=== PATIENT | male | born 1960 | race Caucasian/White ===

== ENCOUNTER → 2019-10-19 | Outpatient (CLI) | payer BC, MEDICARE | END | disposition home or self-care (01) | LOC: LABWHC1 10:20 | PROVIDERS: ATTEND Surgery Plastic and Reconstructive Surgery | DX: Z11.59 Encounter for screening for other viral diseases (principal) ==

== ENCOUNTER 2019-10-21 08:35 | Day surgery (SDC) | payer BC, MEDICARE ==
[2019-10-16 12:14] VITALS: BMI 27.0
--- NOTE | 2019-10-21 08:12 | P.GSHP ---
History of Present Illness H&P Date: 10/21/19 CHIEF COMPLAINT: Colon screen HISTORY OF PRESENT ILLNESS: The patient is a 59-year-old male who presents for colon screen. Lower endoscopy was offered for further evaluation and management. PAST MEDICAL HISTORY: Please see list. PAST SURGICAL HISTORY: Please see list. MEDICATIONS: Please see list. ALLERGIES: Please see list. SOCIAL HISTORY: No illicit drug use FAMILY HISTORY: No reports of Crohn disease or ulcerative colitis. REVIEW OF ORGAN SYSTEMS: CONSTITUTIONAL: No reports of fevers or chills. PHYSICAL EXAM: VITAL SIGNS: Stable GENERAL: Well-developed pleasant in no acute distress. HEENT: No scleral icterus. Extraocular movements grossly intact. Moist buccal mucosa. NECK: Supple without lymphadenopathy. CHEST: Unlabored respirations. Equal bilateral excursions. CARDIOVASCULAR: Regular rate and rhythm. Distal 2+ pulses. ABDOMEN: Soft, nontender, nondistended. MUSCULOSKELETAL: No clubbing, cyanosis, or edema. ASSESSMENT: 1. Colon screen. PLAN: 1. Recommend proceeding with a lower endoscopy Past Medical History Past Medical History: Hypertension, Prostate Disorder Additional Past Medical History / Comment(s): hx. of intermittent blood in stool for a few weeks recently, now resolved, migraine headaches, enlarged prostate History of Any Multi-Drug Resistant Organisms: None Reported Past Surgical History: Orthopedic Surgery Additional Past Surgical History / Comment(s): colonoscopy, frozen shoulder surg. Past Anesthesia/Blood Transfusion Reactions: No Reported Reaction Smoking Status: Never smoker Medications and Allergies Home Medications Medication Instructions Recorded Confirmed Type Enalapril [Vasotec] 10 mg PO DAILY 10/16/19 10/16/19 History Multivitamins, Thera [Multivitamin 1 tab PO DAILY 10/16/19 10/16/19 History (formulary)] Tamsulosin [Flomax] 0.4 mg PO DAILY 10/16/19 10/16/19 History Allergies Allergy/AdvReac Type Severity Reaction Status Date / Time No Known Allergies Allergy Verified 10/16/19 12:02
[~2019-10-21 08:35] MED LIST: LACTATED RINGERS 1,000 ML IV SCH
[2019-10-21 08:59] VITALS: TEMP 97
[2019-10-21] MEDS ORDERED: ePHEDrine SULFATE/0.9% NACL/PF 50 MG/5 ML SYRINGE IV ONE (09:31)
[2019-10-21] MEDS ORDERED: PROPOFOL 10 MG/ML 20 ML VIAL IV ONE (09:31)
[2019-10-21 10:17] VITALS: RESP 18
--- NOTE | 2019-10-21 10:19 | P.PCN ---
Date of Procedure: 10/21/19 Description of Procedure: PREOPERATIVE DIAGNOSIS: History of rectal bleeding POSTOPERATIVE DIAGNOSIS: Internal/external hemorrhoids, grade 2 Diverticulosis, scattered. OPERATION: Colonoscopy to the ileocecal valve and appendiceal orifice. SURGEON: Sharmila Rodríguez MD. ANESTHESIA: MAC. INDICATIONS: The patient is a 59-year-old male who presents with rectal bleeding. Last colonoscopy 5 years ago. Benefits and risks were described and informed consent was obtained. DESCRIPTION OF PROCEDURE: The patient had undergone Suprep. He had been brought into the operating room and laid in the left lateral decubitus position. After adequate intravenous sedation, the rectum was examined with 2% lidocaine jelly. External hemorrhoids were encountered. The rectal tone was within normal limits. No lesions were palpated in the rectal vault. An Olympus colonoscope was advanced until the ileocecal valve and appendiceal orifice were clearly viewed. The prep was excellent with clear visualization of the mucosal folds. The scope was removed with visualization of each mucosal fold. Scattered simoid diverticulosis was encountered. No colonic polyps were found. No evidence of focal colitis was found. Retroflexion of the scope demonstrated grade 2 internal hemorrhoids without active bleeding or inflammation. The colon was desufflated. The patient had tolerated the procedure well. Withdrawal time was over 6 minutes. FINDINGS: Aronchick preparation quality scale 1 (1-5) Internal hemorrhoids, grade 2 External prolapsed hemorrhoids, grade 2 No arteriovenous malformations. No adenomatous polyps. No focal colitis. RECOMMENDATIONS: Lower endoscopy in 10 years, 2030 or Cologaurd Plan - Discharge Summary Discharge Rx Participant: No New Discharge Prescriptions: Continue Tamsulosin [Flomax] 0.4 mg PO DAILY Multivitamins, Thera [Multivitamin (formulary)] 1 tab PO DAILY Enalapril [Vasotec] 10 mg PO DAILY Discharge Medication List Enalapril [Vasotec] 10 mg PO DAILY 10/16/19 [History] Multivitamins, Thera [Multivitamin (formulary)] 1 tab PO DAILY 10/16/19 [History] Tamsulosin [Flomax] 0.4 mg PO DAILY 10/16/19 [History] Follow up Appointment(s)/Referral(s): Sharmila Rodríguez MD [STAFF PHYSICIAN] - As Needed Patient Instructions/Handouts: Hemorrhoids (DC), Rectal Bleeding (DC), Diverticulosis Diet (GEN), Diverticulosis (DC) Activity/Diet/Wound Care/Special Instructions: Repeat colonoscopy 10 years, 2030 or Cologaurd Discharge Disposition: HOME SELF-CARE
[2019-10-21 10:34] VITALS: BP 109/59; PULSE 69
== END 2019-10-21 11:05 | disposition home or self-care (01) ==
LOC: ORWHC2ENDO 08:35
PROVIDERS: ATTEND Surgery Plastic and Reconstructive Surgery
DX: K57.30 Diverticulosis of large intestine without perforation or abscess without bleeding (principal); K64.1 Second degree hemorrhoids; K64.4 Residual hemorrhoidal skin tags; I10 Essential (primary) hypertension; N40.0 Benign prostatic hyperplasia without lower urinary tract symptoms; K21.9 Gastro-esophageal reflux disease without esophagitis; G43.909 Migraine, unspecified, not intractable, without status migrainosus; Z79.899 Other long term (current) drug therapy; Z98.890 Other specified postprocedural states
CPT/HCPCS: 45378; J2704